=== PATIENT | female | born 1990 | race American Indian/Alaskan Native ===

== ENCOUNTER 2017-07-13 23:39 | Inpatient (IN) | payer MEDICAID ==
[2017-07-14] MEDS ORDERED: ePHEDrine SULFATE IV PRN (01:48)
[2017-07-14] MEDS ORDERED: MINERAL OIL PO PRN (01:48)
[2017-07-14] MEDS ORDERED: POLYCILLIN/NS 2 GM/100 ML 2 GM/100 ML BAG IV ONE (01:48)
--- NOTE | 2017-07-14 01:59 | History and Physical Report ---
History of Present Illness Date of examination: 07/14/17 Date of admission: 07/14/17 Chief complaint: Sent from office for induction of labor (patient went home for a number of hours before presenting to L&D for induction). Being induced for morbid obesity and history of IUFD with previous . History of present illness: 26 year old female presents to L&D for induction of labor due to morbid obesity and history of IUFD with a previous . Patient denies contractions, vaginal bleeding, or leaking of fluid. Patient reports active movement. 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 Pt. has seen [facility] and they recommended delivery at 38-39 weeks gestation. 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 denies: smoking, alcohol abuse, prescription drug abuse, IV drug use - Obstetrical History Expected Date of Delivery: 07/27/17 Actual Gestation: 38 Week(s) 1 Day(s) : 7 Para: 6 Hx # Term Pregnancies: 7 Number of Pregnancies: 0 Spontaneous Abortions: 0 Induced : 0 Number of Living Children: 5 Medications and Allergies Allergies Allergy/AdvReac Type Severity Reaction Status Date / Time No Known Allergies Allergy Verified 07/14/17 01:56 Home Medications Medication Instructions Recorded Confirmed Last Taken Type No Known Home Medications [No 07/14/17 07/14/17 Unknown History Reported Home Medications] Active Meds: Active Medications Ephedrine Sulfate (Ephedrine Sulfate) 10 mg IV Q2M PRN PRN Reason: Hypotension Stop: 07/14/17 01:53 Ampicillin Sodium (Polycillin/Ns 2 Gm/100 Ml) 2 gm in 100 mls @ 100 mls/hr IV ONCE ONE PRN Reason: Protocol Stop: 07/14/17 02:47 Lactated Ringer's (Lactated Ringers) 1,000 mls @ 125 mls/hr IV DIRECT YU Mineral Oil (Mineral Oil) 30 ml PO QHS PRN PRN Reason: Constipation Review of Systems All systems: negative (when questioned, patient reports itching in genital area on and off for weeks) - Vital Signs Vital signs: Vital Signs Temp Resp 98.7 F 20 07/14/17 01:16 07/14/17 01:16 Temp Pulse Resp BP Pulse Ox 98.7 F 105 H 20 111/75 92 07/14/17 01:16 07/14/17 01:42 07/14/17 01:16 07/14/17 01:19 07/14/17 01:42 - Physical Exam Breasts: Positive: deferred Cardiovascular: Regular rate, Normal S1, Normal S2 Lungs: Positive: Clear to auscultation Abdomen: Positive: normal appearance, soft. Negative: distention, tenderness, guarding, rigidity Genitourinary (Female): Positive: perineal/vulvar lesions (2 clusters of small shallow ulcerative appearing lesions noted on vulva ) Vagina: Negative: discharge Cervix: Positive: other (1/thick/high/posterior) Uterus: Positive: enlarged. Negative: tender Anus/Rectum: Positive: normal perianal skin Extremities: Positive: normal, edema (mild pedal edema bilaterally). Negative: tenderness - Obstetrical FHR: category 1 Uterine Contraction Monitor Mode: External Cervical Dilatation: 1 Cervical Effacement Percentage: 20 station: -4 Uterine Contraction Pattern: Irregular Uterine Contraction Intensity: Mild Results All other labs normal. Assessment and Plan A: at 38 weeks, 1 day gestation. Morbid obesity. History of IUFD with a previous . GBS positive. Vulvar lesions. P: Consulted with Dr. Lopez re: patient and findings of vulvar lesions on admission exam. Dr. Lopez also examined patient and spoke with her re: possiblity lesions may be herpes lesions. Patient considering his recommendation for delivery.
[2017-07-14] MEDS ORDERED: LACTATED RINGERS 1,000 ML IV SCH (02:00)
[2017-07-14] MEDS ORDERED: REGLAN IV ONE (02:26)
[2017-07-14] MEDS ORDERED: BICITRA PO ONE (02:26)
[2017-07-14] MEDS ORDERED: PEPCID IV ONE ×2 (02:26→07:59)
[2017-07-14] MEDS: LACTATED RINGERS 1,000 ML IV SCH ×2 (02:45→03:50)
[2017-07-14] MEDS ORDERED: PITOCin/NS 20 UNIT/1000ML DRIP 20 UNITS/1,000 ML BAG IV SCH ×2 (03:00→11:00)
[2017-07-14] MEDS ORDERED: ANCEF/STERILE WATER 2 GM/20 ML 2 GM/20 ML SYRINGE IV NR (03:00)
[2017-07-14 03:16] LABS: Hematocrit 33.7 % (30.3-42.9); Hemoglobin 11.1 gm/dl (10.1-14.3); Mean Corpuscular HGB Conc 33 % (30-34); Mean Corpuscular Volume 74 fl (79-97); Platelet Count 276 K/mm3 (140-440); Red Blood Count 4.55 M/mm3 (3.65-5.03); White Blood Count 13.3 K/mm3 (4.5-11.0)
[2017-07-14 03:22] LABS: Mean Corpuscular Hemoglobin 24 pg (28-32)
[2017-07-14] MEDS ORDERED: POLYCILLIN/NS 1 GM/50 ML 1 GM/50 ML BAG IV SCH (06:00)
--- NOTE | 2017-07-14 07:54 | Anesthesia Consultation ---
Anesthesia Consult and Med Hx Date of service: 07/14/17 - Airway Anesthetic Teeth Evaluation: Good ROM Head & Neck: Inadequate Mental/Hyoid Distance: Adequate Mallampati Class: Class III Intubation Access Assessment: Possibly Difficult - Pulmonary Exam CTA: Yes - Cardiac Exam Cardiac Exam: RRR - Pre-Operative Health Status ASA Pre-Surgery Classification: ASA3, Emergency Proposed Anesthetic Plan: Epidural, Spinal - Pulmonary Hx Asthma: No COPD: No Hx Pneumonia: No - Cardiovascular System Hx Hypertension: No - Central Nervous System Hx Seizures: No Hx Psychiatric Problems: No - Endocrine Hx Renal Disease: No Hx End Stage Renal Disease: No Hx Hypothyroidism: No Hx Hyperthyroidism: No - Hematic Hx Anemia: No Hx Sickle Cell Disease: No - Other Systems Hx Alcohol Use: No Hx Obesity: Yes (morbid) - Additional Comments Anesthesia Medical History Comments: Active genital herpes
--- NOTE | 2017-07-14 07:55 | Anesthesia Day of Surgery ---
Anesthesia Day of Surgery - Day of Surgery Patient Examined: Yes Patient H&P Reviewed: Yes Patient is NPO: Yes (FSP)
[2017-07-14] MEDS ORDERED: ANCEF/STERILE WATER 2 GM/20 ML 2 GM/20 ML SYRINGE IV ONE (07:59)
[2017-07-14] MEDS ORDERED: BICITRA ONE (07:59)
[2017-07-14] MEDS ORDERED: REGLAN ONE (07:59)
[2017-07-14] MEDS ORDERED: NACL 0.9% IR ONE (09:25)
[2017-07-14] MEDS ORDERED: WATER FOR IRRIG STERILE IR ONE (09:25)
[2017-07-14] MEDS ORDERED: XYLOCAINE MPF 2% ONE (09:32)
[2017-07-14] MEDS ORDERED: MORPHINE ONE (09:32)
[2017-07-14] MEDS ORDERED: ZOFRAN ONE (09:48)
[2017-07-14] MEDS ORDERED: NACL P/F VIAL (10 ML) 10 ML ONE (09:56)
[2017-07-14] MEDS ORDERED: NEO SYNEPHRINE/NS Syringe(OR USE) IV ONE (10:00)
--- NOTE | 2017-07-14 10:15 | Operative Report ---
Operative Report Operative Report: Date of procedure: 07/14/2017 Pre-operative diagnosis: 1. Intrauterine at 38-1/7 weeks 2. Suspected HSV outbreak Post-operative diagnosis: Same with double footling breech presentation Procedure name(s): Primary low transverse section Surgeon: Francisco Lopez MD Occupancy Specialist: None Anesthesia: Spinal anesthesia by Dr. Garcia EBL: 700 mL Findings: A 3681 g female infant Apgars 8 at 1 minute and 9 at 5 minutes. Double footling breech presentation. Clear amniotic fluid. Normal uterus. Normal tubes and ovaries bilaterally. Procedure: After the patient was prepped and draped in usual sterile fashion, and after satisfactory level of epidural anesthesia was obtained, the skin knife was used to make a transverse skin incision. The incision was excised down to layer of the fascia, which was nicked in the midline and extended laterally using the Bovie cautery. The rectus muscles were dissected off the rectus fascia both superiorly and inferiorly. The rectus bellies in the midline, and the peritoneum was entered under direct visualization. The peritoneal incision was extended superiorly and inferiorly. A bladder flap was created and the bladder blade was then placed. The uterus was scored in a curvilinear linear fashion, entered in the midline revealing clear amniotic fluid. The infant's feet were delivered onto the surgical field followed by the rest of infant's body, and the oropharynx and nasopharynx were bulb suctioned. The cord was doubly clamped and cut and the infant was handed to the waiting respiratory team. Cord blood was then obtained. The placenta was manually removed from the uterus, and the uterus removed from its normal anatomical position. After gentle uterine lavage, the incision was inspected and found to be without extensions. It was then closed in 2 layers using 0 Vicryl suture in a running interlocking fashion, the second layer imbricating the first. After good hemostasis was achieved, copious amounts or irrigation was performed, and the gutters were suctioned free of blood and blood clots. Tisseel sealant was sprayed across the uterine incision. The uterus was then returned to its normal anatomical position, and after excellent hemostasis assured, the peritoneum was re-approximated using 3-0 Vicryl suture in a running interlocking fashion, and then the rectus muscles were re-approximated using 3-0 Vicryl suture in a [id number] configuration. The fascia was then re-approximated using 0 Vicryl suture in running interlocking fashion. The subcutaneous layer was made hemostatic using Bovie cautery, the Tisseel sealant was sprayed across the fascial incision and the skin edges re- approximated using 4-0 Vicryl suture in a sub-cuticular fashion. Patient tolerated the procedure well was transported to recovery in stable condition.
[2017-07-14] MEDS ORDERED: PHENERGAN PR PRN (10:17)
[2017-07-14] MEDS ORDERED: SENOKOT PO PRN (10:17)
[2017-07-14] MEDS ORDERED: ZOFRAN IV PRN ×2 (10:17→10:20)
[2017-07-14] MEDS ORDERED: MILK OF MAGNESIA PO PRN (10:17)
[2017-07-14] MEDS ORDERED: NORCO 5/325 PO PRN (10:17)
[2017-07-14] MEDS ORDERED: MYLICON PO PRN (10:17)
[2017-07-14] MEDS ORDERED: TUCKS PAD TP PRN (10:17)
[2017-07-14] MEDS ORDERED: LANSINOH TP PRN (10:17)
[2017-07-14] MEDS ORDERED: TYLENOL PO PRN (10:17)
[2017-07-14] MEDS ORDERED: NARCAN 0.4 MG/1 ML IV PRN (10:17)
[2017-07-14] MEDS ORDERED: DILAUDID IV PRN ×2 (10:20)
[2017-07-14] MEDS ORDERED: BENADRYL IV PRN (10:20)
[2017-07-14] MEDS: TORADOL IV PRN ×2 (10:41→18:10)
[2017-07-14] MEDS ORDERED: SODIUM CHLORIDE FLUSH SYRINGE 10 ML IV NR (11:00)
[2017-07-14] MEDS: ANCEF/NS 1 GM/50 ML 1 GM/50 ML BAG IV SCH (14:53)
--- NOTE | 2017-07-14 19:51 | Post Anesthesia Evaluation ---
- Post Anesthesia Evaluation Patient Participated: Yes Airway Patent: Yes Stable Respiratory Function: Yes Temp > 96.8F: Yes Pain Manageable: Yes Adequeate Hydration: Yes Anesthesia Complications: No Block Receding Appropriately: Yes
[2017-07-14] MEDS: D5LR 1,000 ML IV SCH (21:15)
[2017-07-14 22:34] LABS: Hemoglobin 9.1 gm/dl (10.1-14.3)
[2017-07-15] MEDS: ANCEF/NS 1 GM/50 ML 1 GM/50 ML BAG IV SCH (00:09)
[2017-07-15] MEDS: PERCOCET 5/325 PO PRN (00:45)
[2017-07-15] MEDS: MOTRIN PO PRN ×3 (00:45→23:35)
[2017-07-15] MEDS: D5LR 1,000 ML IV SCH (06:14)
[2017-07-15] MEDS ORDERED: BOOSTRIX IM ONE (06:30)
[2017-07-15] MEDS: TORADOL IV PRN (06:47)
[2017-07-15] MEDS ORDERED: D5LR 1,000 ML IV SCH (08:00)
[2017-07-15] MEDS: FEOSOL PO SCH (09:36)
[2017-07-15] MEDS: PRENATAL VITAMIN PO SCH (09:36)
--- NOTE | 2017-07-15 10:14 | Progress Note ---
Assessment and Plan A: /postop day 1 S/P primary low transverse section. P: Advance diet today. Encouraged patient to ambulate. Subjective - Subjective Date of service: 07/15/17 Principal diagnosis: /postop day 1 Interval history: /postop day 1 S/P primary low transverse section. Patient is doing well. She is voiding without difficulty and ambulating well. She is tolerating a clear liquid diet without nausea or vomiting. She reports she is passing gas. She reports small amount of lochia. Patient denies headache, chest pain, cough, shortness of breath, leg pain, abdominal pain, or heavy vaginal bleeding. Patient reports: appetite normal, voiding normally, pain well controlled, flatus , ambulating normally : doing well Objective - Vital Signs Latest vital signs: Vital Signs Temp Pulse Resp BP BP Pulse Ox 07/15/17 08:20 99 H 97/42 07/15/17 08:10 97.9 F 97 H 19 87/48 07/15/17 07:55 97 H 87/48 07/15/17 06:47 18 07/15/17 06:00 97/56 07/15/17 04:00 98.7 F 98 H 21 91/35 99 07/15/17 02:18 98.9 F 104 H 21 103/44 99 07/15/17 00:45 18 07/15/17 00:00 97.9 F 120 H 22 94/42 98 07/14/17 20:00 97.1 F L 92 H 20 139/96 110/73 98 07/14/17 19:50 85 25 H 124/66 97 07/14/17 19:44 15 62 L 07/14/17 18:10 18 07/14/17 11:50 87 15 123/53 07/14/17 11:41 78 12 119/52 07/14/17 11:30 85 24 130/78 100 07/14/17 11:20 82 20 130/83 07/14/17 11:15 79 22 120/51 100 07/14/17 11:10 80 19 134/86 07/14/17 11:00 85 22 131/90 98 07/14/17 10:51 79 16 133/80 93 07/14/17 10:45 81 19 122/61 100 07/14/17 10:40 89 15 132/86 07/14/17 10:30 92 H 20 140/85 100 07/14/17 10:25 96 H 19 140/85 98 07/14/17 10:20 97 H 12 129/82 99 07/14/17 10:18 115 H 24 95 07/14/17 10:15 97.7 F 97 H 17 114/95 97 Intake and Output 07/14/17 07/15/17 07/15/17 23:59 07:59 15:59 Intake Total 1000 120 Output Total 600 Balance 400 120 Intake: IV 1000 D5lr 1,000 ml @ 125 mls/ 1000 hr IV DIRECT YU Rx#: [id number] Oral 120 Output: Urine 600 Indwelling Catheter 600 Other: Total, Intake Amount 120 Total, Output Amount 600 # Voids Void 1 1 - Exam Breasts: Present: deferred Cardiovascular: Present: Regular rate, Normal S1, Normal S2 Lungs: Present: Clear to auscultation Abdomen: Present: normal appearance, soft. Absent: distention, tenderness, guarding, rigidity Extremities: Present: normal. Absent: tenderness Incision: Present: normal, dry, intact, dressed - Labs Labs: Abnormal lab results 07/14/17 Range/Units 22:07 Hgb 9.1 L (10.1-14.3) gm/dl Hct 29.0 L (30.3-42.9) %
[2017-07-15] MEDS ORDERED: M-M-R II VACCINE SUB-Q ONE (10:18)
[2017-07-16] MEDS: PERCOCET 5/325 PO PRN ×3 (00:29→16:02)
[2017-07-16] MEDS: MOTRIN PO PRN ×2 (06:04→12:13)
--- NOTE | 2017-07-16 09:19 | Progress Note ---
Assessment and Plan O: POD # 2 - stable P; Discharge home today Subjective - Subjective Date of service: 07/16/17 Principal diagnosis: /postop day 2 Patient reports: appetite normal [place]: doing well Objective - Vital Signs Latest vital signs: Vital Signs Temp Pulse Resp BP Pulse Ox 07/16/17 09:11 20 07/16/17 06:04 20 07/16/17 01:29 18 07/16/17 01:15 97.7 F 114 H 18 113/60 97 07/16/17 00:29 18 07/15/17 23:35 18 07/15/17 19:30 18 07/15/17 18:30 18 07/15/17 16:10 97.7 F 95 H 18 119/76 07/15/17 13:01 18 07/15/17 12:10 98.1 F 98 H 18 105/55 Intake and Output 07/15/17 07/16/17 07/16/17 22:59 06:59 14:59 Intake Total 120 580 Balance 120 580 Intake: Oral 120 580 Other: Total, Intake Amount 120 580 # Voids Void 1 3 # Bowel Movements 0 - Exam Breasts: Present: deferred Cardiovascular: Present: Regular rate Lungs: Present: Clear to auscultation Abdomen: Present: soft Vulva: both: normal Uterus: Present: fundal height below umbilicus Deep Tendon Reflex Grade: Normal +2 Incision: Present: intact, dressed
--- NOTE | 2017-07-16 09:20 | Discharge Summary ---
Providers - Providers Date of Admission: 07/13/17 23:39 Date of discharge: 07/16/17 Attending physician: OMID RAMSEY MD Primary care physician: OMID RAMSEY MD Hospitalization Reason for admission: active labor Delivery: (breech and + HSV) Procedure: primary low transverse Incision: intact Other procedures: none complications: none Discharge diagnosis: IUP at term delivered [place] baby: female Condition at discharge: Good Disposition: DC-01 TO HOME OR SELFCARE Plan - Discharge Medications Prescriptions: Ferrous Sulfate [Feosol 325 MG tab] 325 mg PO BID #60 tablet HYDROcodone/APAP 5-325 [[place] 5/325] 1 each PO Q6HR PRN #30 tablet PRN Reason: Pain Ibuprofen [Motrin] 800 mg PO Q8HR PRN #30 tablet PRN Reason: Moder Pain Unrelieved By [place] Vit Calc,Iron,Folic [ Vitamins] 1 each PO DAILY #30 tablet - Provider Discharge Summary Activity: routine, no sex for 6 weeks, no strenuous exercise Diet: routine Instructions: routine Additional instructions: [] Smoking cessation referral if applicable(refer to patient education folder for contact #) [] Refer to [facility]'s [facility] Booklet Call your doctor immediately for: * Fever > 100.5 * Heavy vaginal bleeding ( >1 pad per hour) * Severe persistent headache * Shortness of breath * Reddened, hot, painful area to leg or breast * Drainage or odor from incision. * Keep incision clean and dry at all times and follow doctor's instructions regarding bathing/showering - Follow up plan Follow up: OMID RAMSEY MD [Primary Care Provider] - 14 Days
[2017-07-16] MEDS: PRENATAL VITAMIN PO SCH (12:13)
[2017-07-16] MEDS: FEOSOL PO SCH (12:13)
[2017-07-17] MEDS: MOTRIN PO PRN (00:53)
[2017-07-17] MEDS: PERCOCET 5/325 PO PRN (08:12)
[2017-07-17] MEDS: FEOSOL PO SCH (12:19)
[2017-07-17] MEDS: PRENATAL VITAMIN PO SCH (12:21)
[2017-07-17 18:37] VITALS: BP 114/67
== END 2017-07-17 18:55 | disposition home or self-care (01) | DRG 765 ==
LOC: LD 23:39 → OB 07-14 13:29
PROVIDERS: ADMIT Obstetrics & Gynecology; ATTEND Obstetrics & Gynecology
PROC: 10D00Z1 Extraction of Products of Conception, Low, Open Approach (ICD-10-PCS; principal; 2017-07-14)
PROC: 3E0234Z Introduction of Serum, Toxoid and Vaccine into Muscle, Percutaneous Approach (ICD-10-PCS; 2017-07-14)
PROC: 3E0S3BZ Introduction of Anesthetic Agent into Epidural Space, Percutaneous Approach (ICD-10-PCS; 2017-07-14)
PROC: 00HU33Z Insertion of Infusion Device into Spinal Canal, Percutaneous Approach (ICD-10-PCS; 2017-07-14)
DX: O32.8XX0 Maternal care for other malpresentation of fetus, not applicable or unspecified (principal); O98.52 Other viral diseases complicating childbirth; Z68.43 Body mass index [BMI] 50.0-59.9, adult; B00.9 Herpesviral infection, unspecified; O99.824 Streptococcus B carrier state complicating childbirth; O99.214 Obesity complicating childbirth; E66.01 Morbid (severe) obesity due to excess calories; Z23 Encounter for immunization; Z3A.38 38 weeks gestation of pregnancy; Z37.0 Single live birth; Z82.49 Family history of ischemic heart disease and other diseases of the circulatory system
CPT/HCPCS: 36415; 85014; 85018; 85027; 86592; 86850; 86900; 86901; 90471; 90715; 99211; C9250; G0463; J0290; J0690; J1170; J1885; J2270; J2370; J2405; J2590; J2765; J7120; J7121